=== PATIENT | female | born 1950 | race Caucasian/White ===

== ENCOUNTER → 2016-06-07 | Outpatient (CLI) | payer OTHER ==
[~2016-06-07] MED LIST: ALL300 PO; ASPEC325 PO; CLL250 PO; CYCL25CA5 PO; ESTRING VAGRING; LSX20 PO; MULT-506 PO; OSCD250 PO; PRED-301 PO; SULF800T23 PO
--- NOTE | 2016-06-07 14:30 | DIAGNOSTIC IMAGING REPORT ---
TWO VIEW CHEST CLINICAL HISTORY: Cough. FINDINGS: PA and lateral chest radiographs are compared to study dated 09/06/2015. The cardiomediastinal silhouette is unremarkable. There is atherosclerotic calcification of the thoracic aorta. The lungs and pleural spaces are clear. There is no pneumothorax. The skeletal structures are osteopenic. Mild degenerative change is noted throughout the thoracic spine. IMPRESSION: No active disease in the chest. Electronically signed by: Saji Donis M.D. 06/07/2016 2:28 PM Dictated Date/Time: 06/07/2016 2:28 PM
[2016-06-07 14:41] LABS: BASO % 0.2 %; BASO ABS # 0.02 K/uL (0-0.2); COMPLETE YES; HEMATOCRIT 35.8 % (37-47); IG% 0.1 %; LYMPH ABS # 0.73 K/uL (1.2-3.4); MEAN CELL VOLUME 91.3 fL (80-100); MEAN CORPUSCULAR HEMOGLOBIN 31.4 pg (25-34); MEAN CORPUSCULAR HGB CONC 34.4 g/dl (32-36); MONO % 8.1 %; NEUT % 84.6 %; PLATELET COUNT 217 K/uL (130-400); RED BLOOD COUNT 3.92 M/uL (4.2-5.4); WHITE BLOOD COUNT 10.41 K/uL (4.8-10.8)
== END | disposition home or self-care (01) ==
LOC: C.LAB1850 14:06
PROVIDERS: ATTEND Internal Medicine
DX: Z94.0 Kidney transplant status (principal); R05 Cough; E78.00 Pure hypercholesterolemia, unspecified; E83.52 Hypercalcemia; I10 Essential (primary) hypertension; N28.9 Disorder of kidney and ureter, unspecified; M19.90 Unspecified osteoarthritis, unspecified site

== ENCOUNTER → 2016-07-03 | Outpatient (CLI) | payer OTHER ==
[2016-07-03 12:11] LABS: BASO % 0.4 %; BASO ABS # 0.03 K/uL (0-0.2); COMPLETE YES; EOS % 0.4 %; HEMATOCRIT 36.6 % (37-47); IG% 0.3 %; LYMPH % 13.2 %; MEAN CELL VOLUME 92.2 fL (80-100); MEAN CORPUSCULAR HGB CONC 33.6 g/dl (32-36); MONO % 5.4 %; NEUT % 80.3 %; PLATELET COUNT 334 K/uL (130-400); RED BLOOD COUNT 3.97 M/uL (4.2-5.4); WHITE BLOOD COUNT 7.57 K/uL (4.8-10.8)
[2016-07-03 12:42] LABS: BLOOD UREA NITROGEN 35 mg/dl (7-18); BUN/CREATININE RATIO 20.8 (10-20); CALCIUM 9.7 mg/dl (8.5-10.1); CARBON DIOXIDE 25 mmol/L (21-32); CHLORIDE 101 mmol/L (98-107); GLUCOSE 97 mg/dl (70-99); POTASSIUM 3.6 mmol/L (3.5-5.1); SODIUM 137 mmol/L (136-145)
[2016-07-03 12:44] LABS: ESTIMATED AVERAGE GLUCOSE 114 mg/dl; HA1C FLAG Normal (Normal)
--- NOTE | 2016-07-09 06:22 | CODING QUERY MEDICAL NECESSITY ---
SUPPORTING DIAGNOSIS NEEDED Young PA, A supporting diagnosis is required for the test/procedure performed on this patient in order for us to be reimbursed by the patient's insurance. Please provide a supporting diagnosis for the following test/procedure listed below next to the test name along with your signature. *If there is no additional diagnosis for this patient that would support the following test/procedure please document that below next to the test/procedure. Test(s)/Procedure(s) that require a supporting diagnosis: * [id number] GLYCATED HEMOGLOBIN DIAGNOSIS: DATE OF SERVICE: 07/03/16 Provider Signature: Date: Thank you Faustino Sainz [facility] Information Management Once completed, please kindly fax back to [phone] For questions please call [phone]
== END | disposition home or self-care (01) ==
LOC: C.LAB1850 11:16
PROVIDERS: ATTEND Internal Medicine
DX: Z00.00 Encounter for general adult medical examination without abnormal findings (principal); E78.00 Pure hypercholesterolemia, unspecified; I10 Essential (primary) hypertension; N28.9 Disorder of kidney and ureter, unspecified; E74.39 Other disorders of intestinal carbohydrate absorption

== ENCOUNTER → 2016-08-02 | Outpatient (CLI) | payer OTHER ==
--- NOTE | 2016-08-02 09:40 | DIAGNOSTIC IMAGING REPORT ---
LEFT HIP 2 VIEWS HISTORY: LEFT HIP PAIN COMPARISON: None. FINDINGS: There is no fracture or dislocation. Soft tissues are unremarkable. Cartilage spaces are maintained for age. Surgical clips and suture material within the pelvis consistent with postoperative change. Tiny calcification within the distal gluteus medius tendon which is likely chronic. IMPRESSION: No fracture or dislocation within the left hip. Electronically signed by: Kenny Lenz M.D. 08/02/2016 9:37 AM Dictated Date/Time: 08/02/2016 9:36 AM
== END | disposition home or self-care (01) ==
LOC: C.RDSM 09:22
PROVIDERS: ATTEND Physician Assistant
DX: M25.552 Pain in left hip (principal)

== ENCOUNTER → 2016-08-09 | Outpatient (CLI) | payer OTHER ==
--- NOTE | 2016-08-09 12:41 | DIAGNOSTIC IMAGING REPORT ---
MRI OF THE LEFT HIP WITHOUT IV CONTRAST CLINICAL HISTORY: Gait dysfunction. COMPARISON STUDY: Radiographs of left hip dated 08/02/2016. TECHNIQUE: MRI of left hip is performed utilizing various T1 and T2-weighted sequences in the axial, sagittal, coronal planes. IV contrast was not administered for this examination. The examination is degraded by motion artifact. FINDINGS: There is no MRI evidence of fracture or osteonecrosis identified involving the hips or bony pelvis. No destructive bony lesion is suspected. There is significant greater trochanteric bursitis identified on the left hip. Mild reactive marrow edema is seen within the greater trochanter of the left femur. Mild trochanteric bursitis is identified on the right. Mild arthritic change is present in the hips. The sacroiliac joints appear maintained. The musculature around the hips appears symmetric. No intramuscular edema is identified. The origin of the hamstrings tendons appear intact. A left pelvic renal transplant is noted. There is no hydronephrosis. Small cysts measure up to 14 mm. The bladder, uterus, and adnexa are normal as visualized. No pelvic sidewall or inguinal lymphadenopathy is suspected. IMPRESSION: 1. There is no MRI evidence of fracture or osteonecrosis identified involving the hips or bony pelvis. 2. There is marked left-sided trochanteric bursitis. Mild reactive marrow edema is seen within the greater trochanter of the left femur. 3. Mild trochanteric bursitis is identified on the right. 4. Additional findings as above. Dictated: 08/09/2016 12:16 PM Transcribed: 08/09/2016 12:40 PM Sherri Electronically signed by: Saji Donis M.D. 08/09/2016 12:47 PM Dictated Date/Time: 08/09/2016 12:16 PM
== END | disposition home or self-care (01) ==
LOC: C.MRI 10:55
PROVIDERS: ATTEND Physical Medicine & Rehabilitation
DX: M25.552 Pain in left hip (principal); R26.9 Unspecified abnormalities of gait and mobility; M70.62 Trochanteric bursitis, left hip; M70.61 Trochanteric bursitis, right hip

== ENCOUNTER → 2016-11-14 | Outpatient (CLI) | payer OTHER ==
[2016-11-14 09:47] LABS: BASO % 0.5 %; BASO ABS # 0.02 K/uL (0-0.2); COMPLETE YES; EOS % 1.4 %; HEMATOCRIT 40.1 % (37-47); IG% 0.5 %; LYMPH % 47.7 %; LYMPH ABS # 1.98 K/uL (1.2-3.4); MEAN CELL VOLUME 95.2 fL (80-100); MEAN CORPUSCULAR HEMOGLOBIN 31.1 pg (25-34); MEAN CORPUSCULAR HGB CONC 32.7 g/dl (32-36); MEAN PLATELET VOLUME 9.7 fL (7.4-10.4); MONO % 10.6 %; NEUT % 39.3 %; PLATELET COUNT 308 K/uL (130-400); RED BLOOD COUNT 4.21 M/uL (4.2-5.4); WHITE BLOOD COUNT 4.15 K/uL (4.8-10.8)
[2016-11-14 09:58] LABS: ESTIMATED AVERAGE GLUCOSE 111 mg/dl; HA1C FLAG Normal (Normal)
[2016-11-14 10:07] LABS: BLOOD UREA NITROGEN 36 mg/dl (7-18); BUN/CREATININE RATIO 22.5 (10-20); CALCIUM 9.3 mg/dl (8.5-10.1); CARBON DIOXIDE 28 mmol/L (21-32); CHLORIDE 104 mmol/L (98-107); CHOLESTEROL 260 mg/dl (0-200); GLUCOSE 84 mg/dl (70-99); HDL CHOLESTEROL 86 mg/dl; LDL CHOLESTEROL CALCULATED 145 mg/dl; POTASSIUM 3.5 mmol/L (3.5-5.1); SODIUM 138 mmol/L (136-145); TRIGLYCERIDES 147 mg/dl (0-150); URIC ACID 4.1 mg/dl (2.6-7.2); VERY LOW DENSITY LIPOPROT CALC 29 mg/dl
[2016-11-14 10:17] LABS: URINE APPEARANCE CLEAR (CLEAR); URINE BILIRUBIN NEG (NEG); URINE COLOR YELLOW; URINE NITRITE NEG (NEG); URINE PH 5.5 (4.5-7.5); URINE SPECIFIC GRAVITY 1.014 (1.000-1.030); UROBILINOGEN NEG (NEG)
[2016-11-14 10:18] LABS: MANUAL MICROSCOPIC REQUIRED? NO; REVIEW REQ? NO
[2016-11-14 10:33] LABS: RATIO 82.4 mcg/mg (0-30.0)
--- NOTE | 2016-11-20 06:28 | CODING QUERY MEDICAL NECESSITY ---
SUPPORTING DIAGNOSIS NEEDED Dr. Briggs, A supporting diagnosis is required for the test/procedure performed on this patient in order for us to be reimbursed by the patient's insurance. Please provide a supporting diagnosis for the following test/procedure listed below next to the test name along with your signature. *If there is no additional diagnosis for this patient that would support the following test/procedure please document that below next to the test/procedure. Test(s)/Procedure(s) that require a supporting diagnosis: * [id number] GLYCATED HEMOGLOBIN DIAGNOSIS: DATE OF SERVICE: 11/14/16 Provider Signature: Date: Thank you Faustino Sainz [facility] Information Management Once completed, please kindly fax back to [phone] For questions please call [phone]
== END | disposition home or self-care (01) ==
LOC: C.LAB1850 07:15
PROVIDERS: ATTEND Internal Medicine
DX: E78.00 Pure hypercholesterolemia, unspecified (principal); Z94.0 Kidney transplant status; I10 Essential (primary) hypertension; N28.9 Disorder of kidney and ureter, unspecified

== ENCOUNTER → 2016-11-25 | Outpatient (CLI) | payer OTHER | END | disposition home or self-care (01) | LOC: C.PAPS 11:47 | PROVIDERS: ATTEND Obstetrics & Gynecology | DX: Z12.4 Encounter for screening for malignant neoplasm of cervix (principal) ==

== ENCOUNTER → 2017-01-07 | Outpatient (CLI) | payer OTHER ==
--- NOTE | 2017-01-08 08:10 | MAMMOGRAPHY REPORT ---
BILATERAL DIGITAL SCREENING MAMMOGRAM TOMOSYNTHESIS WITH CAD: 01/07/2017 CLINICAL HISTORY: Routine screening. Patient has no complaints. TECHNIQUE: Breast tomosynthesis in addition to standard 2D mammography was performed. Current study was also evaluated with a Computer Aided Detection (CAD) system. COMPARISON: Comparison is made to exams dated: 10/26/2015 mammogram, 09/20/2014 mammogram, 09/06/2013 jossue mogram, 07/28/2012 mammogram, 07/24/2011 ultrasound, and 07/24/2011 mammogram - [facility] BREAST COMPOSITION: There are scattered areas of fibroglandular density in both breasts. FINDINGS: Benign-appearing circumscribed masses in the left upper outer quadrant have decreased prabhjot ring to more remote mammograms, confirming benignity. There are scattered stable benign-appearing pu nctate microcalcifications. No suspicious mass, architectural distortion or cluster of suspicious mi crocalcifications is seen. IMPRESSION: ACR BI-RADS CATEGORY 1: NEGATIVE There is no mammographic evidence of malignancy. A 1 year screening mammogram is recommended. The pa tient will receive written notification of the results. Approximately 10% of breast cancers are not detected with mammography. A negative mammographic report should not delay biopsy if a clinically suggestive mass is present. Nya Pedraza M.D. ay/:01/07/2017 15:31:33 Embossing Tool Setter: Maribel MONTELONGOR, M, [facility] letter sent: Normal 1/2 BI-RADS Code: ACR BI-RADS Category 1: Negative
== END | disposition home or self-care (01) ==
LOC: C.MAMM 11:16
PROVIDERS: ATTEND Obstetrics & Gynecology
DX: Z12.31 Encounter for screening mammogram for malignant neoplasm of breast (principal)

== ENCOUNTER → 2017-05-29 | Outpatient (CLI) | payer OTHER ==
[2017-05-29 10:30] LABS: BASO % 0.4 %; BASO ABS # 0.02 K/uL (0-0.2); EOS ABS # 0.05 K/uL (0-0.5); HEMATOCRIT 39.1 % (37-47); HEMOGLOBIN 13.1 g/dL (12.0-16.0); IG# 0.01 K/uL (0.00-0.02); LYMPH ABS # 1.94 K/uL (1.2-3.4); MEAN CELL VOLUME 95.6 fL (80-100); MEAN CORPUSCULAR HGB CONC 33.5 g/dl (32-36); MEAN PLATELET VOLUME 9.4 fL (7.4-10.4); MONO % 11.5 %; MONO ABS # 0.59 K/uL (0.11-0.59); NEUT % 48.9 %; PLATELET COUNT 285 K/uL (130-400); RED CELL DISTRIBUTION WIDTH SD 45.2 fL (36.4-46.3); WHITE BLOOD COUNT 5.11 K/uL (4.8-10.8)
[2017-05-29 10:44] LABS: BLOOD UREA NITROGEN 41 mg/dl (7-18); CALCIUM 9.6 mg/dl (8.5-10.1); CARBON DIOXIDE 29 mmol/L (21-32); CREATININE 1.84 mg/dl (0.60-1.20); GLUCOSE 84 mg/dl (70-99); POTASSIUM 3.3 mmol/L (3.5-5.1); SODIUM 137 mmol/L (136-145)
[2017-05-29 11:30] LABS: HEMOGLOBIN A1C 5.5 % (4.5-5.6)
== END | disposition home or self-care (01) ==
LOC: C.LAB1850 09:35
PROVIDERS: ATTEND Internal Medicine
DX: Z94.0 Kidney transplant status (principal); I10 Essential (primary) hypertension; N28.9 Disorder of kidney and ureter, unspecified; E78.00 Pure hypercholesterolemia, unspecified; N25.81 Secondary hyperparathyroidism of renal origin

== ENCOUNTER → 2017-08-04 | Outpatient (CLI) | payer OTHER | END | disposition home or self-care (01) | LOC: C.RDSM 19:44 | PROVIDERS: ATTEND Physical Medicine & Rehabilitation Sports Medicine | DX: M25.559 Pain in unspecified hip (principal) ==